=== PATIENT | female | born 1940 | race Caucasian/White ===

== ENCOUNTER 2021-01-13 18:03 | Emergency (ER) | payer MEDICARE, BC ==
--- NOTE | 2021-01-13 18:42 | EDM.PDOC ---
ED HPI GENERAL MEDICAL PROBLEM - General Stated Complaint: NOT FEELING WELL Time Seen by Provider: 01/13/21 18:22 Source of Information: Reports: Patient - History of Present Illness INITIAL COMMENTS - FREE TEXT/NARRATIVE: Mica is an 81 year old female who comes to the ER with complaints of not feeling well today. She has had chills and some nausea, but has not vomited. [facility] and treated for a UTI with Nitrofurantoin. A urine culture was done and the results are pending. She denies any pain with urination. - Related Data Allergies Allergy/AdvReac Type Severity Reaction Status Date / Time No Known Allergies Allergy Verified 01/13/21 18:55 Home Meds: Home Meds Ciprofloxacin HCl [Cipro] 500 mg PO BID #14 tablet 01/13/21 [Rx] Review of Systems - Review of Systems Review Of Systems: See Below Constitutional: Reports: Chills Eyes: Reports: No Symptoms Ears: Reports: No Symptoms Nose: Reports: No Symptoms Mouth/Throat: Reports: No Symptoms Respiratory: Reports: No Symptoms Cardiovascular: Reports: No Symptoms GI/Abdominal: Reports: Nausea Genitourinary: Reports: No Symptoms Musculoskeletal: Reports: No Symptoms Skin: Reports: No Symptoms Neurological: Reports: No Symptoms Psychiatric: Reports: No Symptoms ED EXAM, GENERAL - Physical Exam Exam: See Below General Appearance: Alert, WD/WN, No Apparent Distress (Elderly female) Ears: Normal External Exam, Hearing Grossly Normal Nose: Normal Inspection Throat/Mouth: Normal Inspection, Normal Oropharynx, Normal Voice Head: Normocephalic Neck: Normal Inspection, Supple Respiratory/Chest: No Respiratory Distress, Lungs Clear, Chest Non-Tender Cardiovascular: Normal Peripheral Pulses, Regular Rate, Rhythm, No Murmur GI/Abdominal: Normal Bowel Sounds, Soft, Non-Tender (Female) Exam: Deferred Rectal (Female) Exam: Deferred Back Exam: No: CVA Tenderness (L), CVA Tenderness (R) Extremities: Normal Inspection, Normal Range of Motion, Normal Capillary Refill Neurological: Alert, Oriented, CN II-XII Intact, Normal Gait, No Motor/Sensory Deficits Psychiatric: Normal Affect, Normal Mood Skin Exam: Warm, Dry, Intact, Normal Color Course - Vital Signs Text/Narrative:: 1821 The patient was seen by the [facility]. Labs done. 1930 Labs reviewed. Note WBC=14.4, Neuts=85.7%, Jyvenq=975, Ofiubco=509. Mg=1.6. UA not repeated since patient on abx and noted in [facility] that Urine Cx was pending [facility]. Will treat with Ceftriaxone 1gm IM x 1 and then start on Cipro Rx. Will have patient obtain some OTC magnesium. Written instructions were given and the patient left the ER in stable condition. - Orders/Labs/Meds Labs: Laboratory Tests 01/13/21 01/13/21 Range/Units 18:49 18:49 WBC 14.4 H (4.0-10.0) x10^3/uL RBC 4.35 (4.00-5.50) x10^6/uL Hgb 14.9 (12.0-16.0) g/dL Hct 42.8 (33.0-47.0) % MCV 98.4 H (78.0-93.0) fL MCH 34.3 H (26.0-32.0) pg MCHC 34.8 (32.0-36.0) g/dL RDW Coeff of George 12.0 (10.0-15.0) % Plt Count 226 (130-400) x10^3/uL Neut % (Auto) 85.7 H (50.0-80.0) % Lymph % (Auto) 5.4 L (25.0-50.0) % Crane % (Auto) 5.7 (2.0-11.0) % Eos % (Auto) 3.1 (0.0-4.0) % Baso % (Auto) 0.1 L (0.2-1.2) % Sodium 133 L (136-145) mmol/L Potassium 3.6 (3.5-5.1) mmol/L Chloride 96 L (98-107) mmol/L Carbon Dioxide 25 (21-32) mmol/L Anion Gap 15.6 H (5-15) mmol/L BUN 14 (7-18) mg/dL Creatinine 0.8 (0.55-1.02) mg/dL Est Cr Clr Drug Dosing TNP Estimated GFR (MDRD) > 60 Glucose 109 H (70-99) mg/dL Calcium 8.9 (8.5-10.1) mg/dL Corrected Calcium 9.2 (8.5-10.1) mg/dL Magnesium 1.6 L (1.8-2.4) mg/dL Total Bilirubin 0.7 (0.2-1.0) mg/dL AST 45 H (15-37) U/L ALT 33 (14-59) U/L Alkaline Phosphatase 86 (46-116) U/L Total Protein 8.6 H (6.4-8.2) g/dL Albumin 3.6 (3.4-5.0) g/dL Globulin 5.0 Albumin/Globulin Ratio 0.72 Meds: Medications Discontinued Medications Generic Name Dose Route Start Last Admin Trade Name Freq PRN Reason Stop Dose Admin Ceftriaxone Sodium 1 gm 01/13/21 19:31 Ceftriaxone 1 Gm Vial IM 01/13/21 19:32 ONETIME ONE Ciprofloxacin 1 packet 01/13/21 19:32 Take Home: Ciprofloxacin 500 Mg Tab, 2 Tab Pack PO 01/13/21 19:33 ONETIME ONE Departure - Departure Time of Disposition: 19:43 Disposition: Home, Self-Care 01 Condition: Good Clinical Impression: UTI, Urinary tract infectious disease, Low magnesium level - Discharge Information Prescriptions: Ciprofloxacin HCl [Cipro] 500 mg PO BID #14 tablet Instructions: Urinary Tract Infection, Adult, [id number], Hypomagnesemia, Ciprofloxacin tablets, Probiotics Referrals: PCP,Not In Area [Primary Care Provider] - Additional Instructions: -Stop taking the Nitrofurantoin that was prescribed in [place] -Start Cipro 500mg oral 2x daily #2(ER)#14(Rx) -You were also given an injection fo Ceftriaxone here in the ER. -Please check with your provider in [place] for the urine culture results. -Your magnesium level was also low today. You can get some over the counter Magnesium Oxide and take 1-2 tablets daily for the next couple weeks oruntil you feel better. -Drink lots of fluids -Rest -Return to the ER as needed - Assessment/Plan Assessment:: 1)UTI 2)Low Magnesium Level Plan: As above
[2021-01-13 19:12] LABS: SODIUM,NA 133 mmol/L (136-145)
[2021-01-13 19:13] LABS: CHLORIDE,CL 96 mmol/L (98-107)
[2021-01-13 19:17] LABS: ANION GAP 15.6 mmol/L (5-15)
[2021-01-13] MEDS ORDERED: cefTRIAXone 1 GM Vial IM ONE (19:31)
[2021-01-13] MEDS: cefTRIAXone 1 GM, Lidocaine 1% 1.2 ML IM SCH ×2 (19:52)
[2021-01-13] MEDS: Take Home: Ciprofloxacin 500 MG Tab, 2 Tab Pack PO ONE (19:52)
[2021-01-13 19:59] VITALS: BP 140/79; PULSE 94
== END 2021-01-13 21:20 | disposition home or self-care (01) ==
LOC: VM.ED 18:03
DX: N39.0 Urinary tract infection, site not specified (principal); E83.42 Hypomagnesemia
CPT/HCPCS: 36415; 80053; 83735; 85025; 96372; 99283; 99284; A9270; J0696